=== PATIENT | male | born 1950 | race Caucasian/White ===

== ENCOUNTER 2016-09-19 06:37 | Inpatient (IN) | payer MEDICARE ==
[~2016-09-19] VITALS: Ht 190.5 cm; Wt 85.7 kg
[2016-09-19] VITALS (14 sets, daily range): BP systolic 138–186; BP diastolic 70–92
[2016-09-19] MEDS ORDERED: IV NORMAL SALINE 1000ML BAG 1,000 ML IV SCH (07:00)
[2016-09-19] MEDS ORDERED: WARF5TAB7 PO ×2 (07:03)
[2016-09-19] MEDS ORDERED: IODIXANOL 320 MG/ML 100 ML VIAL. ONE ×2 (07:11→08:42)
[2016-09-19] MEDS ORDERED: LIDOCAINE 2% 20 ML VIAL. ONE (07:11)
[2016-09-19 07:18] LABS: BASO % 1 % (0-3); EOS % 2 % (0-3); HEMATOCRIT 44.4 % (39.0-53.0); HEMOGLOBIN 14.9 g/dL (13.0-17.5); LYMPH # 1.4 x10^3/uL (1.0-4.8); LYMPH % 31 % (24-48); MEAN CORPUSCULAR HEMOGLOBIN 35 pg (25-35); MEAN CORPUSCULAR HGB CONC 34 g/dL (31-37); MEAN CORPUSCULAR VOLUME 105 fL (79-100); MONO % 10 % (0-9); NEUT % 56 % (31-73); PLATELET COUNT 147 x10^3/uL (140-400); RED BLOOD COUNT 4.25 x10^6/uL (4.30-5.70); RED CELL DISTRIBUTION WIDTH 16.5 % (11.5-14.5); WHITE BLOOD COUNT 4.4 x10^3/uL (4.0-11.0)
[2016-09-19 07:27] LABS: PROTHROMBIN TIME PATIENT 12.4 SEC (11.7-14.0)
[2016-09-19] MEDS ORDERED: FENTANYL PF 250 MCG/5 ML VIAL. ONE (08:04)
[2016-09-19] MEDS ORDERED: MIDAZOLAM HCL/PF 5 MG/5 ML VIAL ONE (08:04)
[2016-09-19 08:21] LABS: CALCIUM 8.7 mg/dL (8.5-10.1); CREATININE 0.9 mg/dL (0.7-1.3); GFR 83.9; POTASSIUM 3.8 mmol/L (3.5-5.1)
--- NOTE | 2016-09-19 08:24 | PDOC ---
MODERATE SEDATION ASSESSMENT RISKS/ALTERNATIVES Risks/Alternatives Risks and alternatives of this type of sedation and procedure discussed with: RISK/ALTERNATIVES: Patient H & P ON CHART H & P H & P on chart and reviewed for co-morbid conditions and appropriate labs. H&P ON CHART: Yes STATUS PREG STATUS ASSESSED: N/A MEDS/ALLERGIES REVIEWED Meds/Allergies Reviewed Medications and Allergies including time and route of recently administered narcotics and sedatives. MEDS/ALLERGIES REVIEWED: Yes ASA RATING ASA RATING: II AIRWAY ASSESSMENT Airway Assessment Airway patency, oral function limitations, presence of caps, crowns, dentures, partials, and ability to extend neck assessed. AIRWAY ASSESSMENT: Yes MALLAMPATI SCORE MALLAMPATI SCORE: II PRE-SEDATION ASSESSMENT PRE-SEDATION ASSESSMENT: Yes ADRIANA OVALLE MD Sep 19, 2016 08:24
[2016-09-19] MEDS ORDERED: MIDAZOLAM HCL/PF 5 MG/5 ML VIAL IV ONE (08:30)
[2016-09-19] MEDS ORDERED: FENTANYL PF 250 MCG/5 ML VIAL. IV ONE (08:30)
[2016-09-19] MEDS ORDERED: CONTRAST GIVEN MC PRN (08:30)
[2016-09-19] MEDS ORDERED: IODIXANOL 320 MG/ML 100 ML VIAL. IART ONE (08:30)
[2016-09-19] MEDS ORDERED: LIDOCAINE 2% 20 ML VIAL. IJ ONE (08:30)
[2016-09-19] MEDS ORDERED: HEPARIN for IV BOLUS 10,000 UNIT/10 ML VIAL. ONE (08:41)
[2016-09-19] MEDS ORDERED: HEPARIN for IV BOLUS 10,000 UNIT/10 ML VIAL. IV ONE (09:15)
[2016-09-19] MEDS ORDERED: MIDAZOLAM HCL 2 MG/2 ML VIAL. ONE ×2 (09:51→09:52)
[2016-09-19] MEDS ORDERED: MIDAZOLAM HCL 2 MG/2 ML VIAL. IV ONE ×2 (10:00→11:00)
[2016-09-19] MEDS ORDERED: ASPIRIN 325 MG TABLET ONE (10:11)
[2016-09-19] MEDS ORDERED: CLOPIDOGREL BISULFATE 75 MG TABLET ONE (10:12)
[2016-09-19] MEDS ORDERED: CLOPIDOGREL BISULFATE 75 MG TABLET PO ONE (10:45)
[2016-09-19] MEDS ORDERED: NITROGLYCERIN 200 MCG/2 ML SYRINGE FOR CATH/VASC LAB. IART ONE (10:45)
[2016-09-19] MEDS ORDERED: ASPIRIN 325 MG TABLET PO ONE (10:45)
[2016-09-19] MEDS: IV 1/2 NORMAL SALINE 1,000 ML IV SCH ×2 (10:47→20:47)
[2016-09-19] MEDS ORDERED: FENTANYL PF 100 MCG/2 ML VIAL. IV ONE (11:00)
[2016-09-19] MEDS ORDERED: ACETAMINOPHEN 325 MG TABLET. PO PRN (11:00)
--- NOTE | 2016-09-19 11:30 | CARD ---
APPROVED REPORT Patient StatusOUT-PATIENT Wirer Helper: Daniela Smlalwood RT Procedure(s) performed: 1. Aortogram with bilateral lower extremity runoff 2. Successful NETWORK SUPPORT ENGINEER/stent placement to chronic total occlusion involving left superficial femoral gilles ry. INDICATION FOR PROCEDURE The indication(s) include : Peripheral vascular disease with claudication. PROCEDURE NARRATIVE After explaining the risks, benefits and alternative options, informed consent for patient. Patient was brought to the Cardiac Tax Senior Associate and both his groins were prepped and draped in the usual fashion. 20 mL of 2% lidocaine was infiltrated into the skin and subcutaneous tissues for local anesthesia. Arterial access was obtained in the right common femoral artery and a 5 Kazakh sheath was inserted. A 5 Kazakh pigtail catheter was used to perform aortogram with bilateral lower extremity runoff. Th e following findings were noted. FINDINGS 1. No significant stenosis involving the distal descending aorta, bilateral common iliac and externa l iliac arteries. 2. No significant stenosis involving bilateral common femoral arteries. 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 3. The left superficial femoral artery showed 70-80% stenoses in the proximal to midsegment followed by 100% chronic total occlusion in the distal segment with reconstitution of the popliteal artery fr om collaterals. 4. The right superficial femoral artery showed 100% chronic total occlusion in the distal segment wi th reconstitution of the popliteal artery via collaterals. 5. No significant stenosis involving bilateral popliteal arteries. There is three vessel runoff bel ow the knee bilaterally. There is moderate effuse disease involving bilateral anterior tibial arteri es and mild diffuse disease involving bilateral peroneal arteries. INTERVENTION The sheath in the right groin was exchanged over a wire to a 45 cm 6 Kazakh destination sheath that w as advanced over the aortic carmen with the help of a crossover catheter and the tip was positioned i n the left common femoral artery. After several initial unsuccessful attempts at crossing the chroni c occlusion using 0.018 inch connect flex followed by connect 250T followed by 0.014 inch hitorque sp artacore guidewires, this was crossed with a 0.035 inch Glidewire. However, the distal tip was found to be subintimal and hence a decision was made to use the Outback reentry catheter. The Glidewire w as exchanged to the [place] core wire and under fluoroscopic guidance, the outback reentry catheter wa s used to access the lumen and the wire was advanced successfully. Subsequently, multiple inflations were performed within the proximal, mid and distal segments of left superficial femoral artery using 4 x 1 20 mm followed by 6 x 200 mm [place] balloons. Finally, the distal segment with a chron ic total occlusion was present initially, was treated successfully with a 6 x 1 50 mm [place] Supera s elf-expanding stent. Final angiography showed resolution of the stenosis to 0% with good distal flow . Patient tolerated the procedure well. Hemostasis was achieved using Perclose suture closure devic e. There were no immediate complications. Conclusion Successful NETWORK SUPPORT ENGINEER/stent placement to the chronic total occlusion involving the left superficial femoral artery. Recommendations Plan for staged NETWORK SUPPORT ENGINEER/stent placement to the right superficial femoral artery in 2 weeks. Risk factor modification.
[2016-09-19] MEDS ORDERED: HYDRALAZINE 50 MG TABLET PO ONE (21:15)
[2016-09-20 03:15] VITALS: BP 119/70
[2016-09-20 07:41] VITALS: BP 116/70
[2016-09-20] MEDS ORDERED: CLOPIDOGREL BISULFATE 75 MG TABLET PO SCH (08:00)
--- NOTE | 2016-09-20 08:58 | DISCH ---
DISCHARGE INSTRUCTIONS Condition on Discharge Condition on Discharge: Stable Activity After Discharge Activity Instructions for Disc: Activity as tolerated Bathing Instructions: Shower-keep dressing dry Lifting Instructions after Dis: No heavy lifting Weight Bearing Status after Di: As tolerated Diet after Discharge Diet after Discharge: Cardiac Wound Incision Care Wound/Incision Care: Ice to area for comfort Wound Care Equipment: Dressings Contacting the [facility] after DC Call your doctor for: Concerns you may have Follow-Up Follow up with: Dr. Kaye in 2 weeks for right lower extremity treatment. Warfarin Follow-Up Warfarin Follow UP: Restart home warfarin dose. Follow up with Dr. Cisneros for monitoring. ERICKA MOYER MD Sep 20, 2016 08:58
[2016-09-20] MEDS ORDERED: CLOP75TA PO (09:00)
[2016-09-20] MEDS ORDERED: ATOR40TA59 PO (09:00)
--- NOTE | 2016-09-20 09:04 | PDOC3 ---
Discharge Summary* Date of Admission: Sep 19, 2016 Date of Discharge: Sep 20, 2016 Admitting Diagnosis Problems Medical Problems: (1) PAD (peripheral artery disease) Status: Acute Final Diagnosis Problems Medical Problems: (1) PAD (peripheral artery disease) Status: Acute Procedures LLE SFA PVI and stenting. Please see cath report for full details. Conclusion Successful VOLTAGE TESTER/stent placement to the chronic total occlusion involving the left superficial femoral artery. Brief Hospital Course Mr. Ortiz is a 66 old male who presented for claudication. Underwent successful percutaneous treatment of LSFA PROCESSOR GRAIN and placement of stent. He was admitted for observation. Did well overnight. No chest pain/dyspnea. Had mild HTN overnight from pain treated with hydralazine. On day of discharge, exam was notable for normal heart tones. lungs clr. R groin with moderate ecchymosis with small hematoma. No bruit or thrill. LLE pulse is 2+ at the DP level. *Patient also started on Plavix and Atorvastatin. Written script given. Disposition/Orders: D/C to Home CONDITION AT DISCHARGE: Improved Diet: Cardiac Scheduled Warfarin Sodium (Warfarin Sodium) 1 TAB PO QMWFSA (Reported) Warfarin Sodium (Warfarin Sodium) 2 TAB PO qtuesdayqthday (Reported) FOLLOW UP APPOINTMENT: [address] Kaye for staged intervention to RLE. PCP Dr. Cisneros Time Spent Total time spent with patient [35] minutes for coordination of care, counseling , and education. ERICKA MOYER MD Sep 20, 2016 09:04
[2016-09-20 10:43] VITALS: BP 122/76
== END 2016-09-20 12:17 | disposition home or self-care (01) | DRG 254 ==
LOC: CCL 06:37 → 2 NORTH 10:13
PROVIDERS: ADMIT Internal Medicine Cardiovascular Disease; ATTEND Internal Medicine Cardiovascular Disease
PROC: B41D1ZZ Fluoroscopy of Aorta and Bilateral Lower Extremity Arteries using Low Osmolar Contrast (ICD-10-PCS; principal; 2016-09-19)
PROC: 047L3DZ Dilation of Left Femoral Artery with Intraluminal Device, Percutaneous Approach (ICD-10-PCS; 2016-09-19)
PROC: 047L3ZZ Dilation of Left Femoral Artery, Percutaneous Approach (ICD-10-PCS; 2016-09-19)
DX: I73.9 Peripheral vascular disease, unspecified (principal); I10 Essential (primary) hypertension
CPT/HCPCS: 36415; 37226; 75630; 80048; 85027; 85610; C1769; C1771; C1876; C1885; C1892; G0269; J2250; J3010; J3490; J7030

== ENCOUNTER 2016-10-03 06:35 | Outpatient (CLI) | payer MEDICARE ==
[~2016-10-03] VITALS: Ht 196.8 cm; Wt 85.7 kg
[2016-10-03] VITALS (10 sets, daily range): BP systolic 138–179; BP diastolic 68–94
[~2016-10-03 06:35] MED LIST: ATOR40TA59 PO; CLOP75TA PO; WARF5TAB7 PO
[2016-10-03] MEDS ORDERED: IV NORMAL SALINE 1000ML BAG 1,000 ML IV SCH (06:45)
[2016-10-03] MEDS ORDERED: LIDOCAINE 2% 20 ML VIAL. ONE (07:07)
[2016-10-03] MEDS ORDERED: IODIXANOL 320 MG/ML 100 ML VIAL. ONE (07:08)
[2016-10-03] MEDS ORDERED: HEPARIN for ARTERIAL LINE 1,500 ML ONE (07:08)
[2016-10-03 07:21] LABS: HEMATOCRIT 41.9 % (39.0-53.0); HEMOGLOBIN 14.2 g/dL (13.0-17.5); RED BLOOD COUNT 4.05 x10^6/uL (4.30-5.70); WHITE BLOOD COUNT 5.4 x10^3/uL (4.0-11.0)
[2016-10-03 07:30] LABS: INR 1.1 (0.8-1.1); PROTHROMBIN TIME PATIENT 13.5 SEC (11.7-14.0)
[2016-10-03 07:33] LABS: CALCIUM 8.4 mg/dL (8.5-10.1); CREATININE 0.9 mg/dL (0.7-1.3); GFR 83.9; POTASSIUM 3.6 mmol/L (3.5-5.1)
[2016-10-03] MEDS ORDERED: MIDAZOLAM HCL 2 MG/2 ML VIAL. ONE ×2 (08:33→08:56)
[2016-10-03] MEDS ORDERED: HEPARIN for IV BOLUS 10,000 UNIT/10 ML VIAL. ONE (08:33)
[2016-10-03] MEDS ORDERED: FENTANYL PF 100 MCG/2 ML VIAL. ONE ×2 (08:33→08:57)
[2016-10-03] MEDS ORDERED: MIDAZOLAM HCL 2 MG/2 ML VIAL. IV ONE (08:45)
[2016-10-03] MEDS ORDERED: IODIXANOL 320 MG/ML 100 ML VIAL. IART ONE (08:45)
[2016-10-03] MEDS ORDERED: FENTANYL PF 100 MCG/2 ML VIAL. IV ONE (08:45)
[2016-10-03] MEDS ORDERED: CONTRAST GIVEN MC PRN (08:45)
[2016-10-03] MEDS ORDERED: LIDOCAINE 2% 20 ML VIAL. IJ ONE (08:45)
--- NOTE | 2016-10-03 08:51 | PDOC ---
MODERATE SEDATION ASSESSMENT RISKS/ALTERNATIVES Risks/Alternatives Risks and alternatives of this type of sedation and procedure discussed with: RISK/ALTERNATIVES: Patient H & P ON CHART H & P H & P on chart and reviewed for co-morbid conditions and appropriate labs. H&P ON CHART: Yes STATUS PREG STATUS ASSESSED: N/A MEDS/ALLERGIES REVIEWED Meds/Allergies Reviewed Medications and Allergies including time and route of recently administered narcotics and sedatives. MEDS/ALLERGIES REVIEWED: Yes ASA RATING ASA RATING: II AIRWAY ASSESSMENT Airway Assessment Airway patency, oral function limitations, presence of caps, crowns, dentures, partials, and ability to extend neck assessed. AIRWAY ASSESSMENT: Yes MALLAMPATI SCORE MALLAMPATI SCORE: II PRE-SEDATION ASSESSMENT PRE-SEDATION ASSESSMENT: Yes ADRIANA OVALLE MD Oct 03, 2016 08:51
[2016-10-03] MEDS ORDERED: ATROPINE 0.5 MG/5 ML DISP.SYRIN. ONE (09:50)
[2016-10-03] MEDS ORDERED: NITROGLYCERIN 200 MCG/2 ML SYRINGE FOR CATH/VASC LAB. IART ONE (10:15)
[2016-10-03] MEDS ORDERED: HEPARIN for IV BOLUS 10,000 UNIT/10 ML VIAL. IV ONE (10:15)
[2016-10-03] MEDS ORDERED: NITROGLYCERIN SUBLINGUAL 0.4 MG BOTTLE OF 25. SL PRN (10:45)
[2016-10-03] MEDS ORDERED: ACETAMINOPHEN 325 MG TABLET. PO PRN (10:45)
--- NOTE | 2016-10-03 10:48 | CARD ---
APPROVED REPORT Patient StatusOUT-PATIENT History Department Chair: You Naranjo RT (R) Procedure(s) performed: Successful COUNTER SUPPLY WORKER/stent placement to the chronic total occlusion involving the r ight superficial femoral artery INDICATION FOR PROCEDURE The indication(s) include : 66-year-old male with symptomatic peripheral vascular disease recently un derwent successful COUNTER SUPPLY WORKER/stent placement to his left superficial femoral artery on 09/19/16. He presente d today for staged COUNTER SUPPLY WORKER/stent placement to chronic total occlusion involving his right superficial fem oral artery.. PROCEDURE NARRATIVE After explaining the risks, benefits and all Torul[place], informed consent was obtained from patient. Patient was brought to the cardiac Wood Boatbuilder Apprentice and his left groin was prepped and draped in the usual fa shion. 20 mL of 2% lidocaine was infiltrated into the skin and subcutaneous tissues for local anesthe susan. Arterial access was obtained in the left common femoral artery and 6 Wallisian 45 cm destination sh eath was inserted. This was advanced over the aortic carmen with the help of full crossover catheter and the tip was positioned in the right superficial femoral artery. Selective angiography come from t he previously described 100% chronic total occlusion involving the distal segment of the right superf icial femoral artery with distal reconstitution of popliteal artery from collaterals. The chronic occlusion was crossed with a 0.035 inch glide wire with backup support from 4 Wallisian angl ed glide catheter followed by 0.035 inch quick cross microcatheter. The lesion was dilated with 4.0 x 1 20 mm followed by 5.5 x 1 20 mm [place] Meme Neal. Following this, the lesion was treated succe ssfully with 5.5 x 1 50 mm [place] supera self-expanding stent. This was postdilated with the 5.5 ball oon. Follow-up angiography showed resolution of the stenosis to 0% with good distal flow. Patient gloria erated the procedure well. Hemostasis was achieved using Perclose suture closure device. There were no immediate complications. Conclusion Successful COUNTER SUPPLY WORKER/stent placement to chronic total occlusion involving the right superficial femoral art zoë Recommendations Risk factor modification
[2016-10-03] MEDS ORDERED: IV 1/2 NORMAL SALINE 1,000 ML IV SCH (11:00)
== END 2016-10-03 14:35 | disposition home or self-care (01) ==
LOC: CCL 06:35
PROVIDERS: ATTEND Internal Medicine Cardiovascular Disease
DX: I73.9 Peripheral vascular disease, unspecified (principal); I74.8 Embolism and thrombosis of other arteries; I63.9 Cerebral infarction, unspecified; I26.99 Other pulmonary embolism without acute cor pulmonale; F17.200 Nicotine dependence, unspecified, uncomplicated; F10.99 Alcohol use, unspecified with unspecified alcohol-induced disorder
CPT/HCPCS: 36415; 37226; 80048; 85027; 85610; 85730; C1725; C1769; C1771; C1877; C1892; G0269; J2250; J3010; J3490; J7030